=== PATIENT | female | born 1945 | race Caucasian/White ===

== ENCOUNTER 2017-07-11 09:30 | Outpatient (RCR) | payer MEDICARE, OTHER, SELFPAY ==
--- NOTE | 2017-06-25 09:19 | HP.PTEVAL_ITS ---
Patient's Visit Information TIGIST UNDERWOOD is a 71 year old F referred to Physical Therapy by Anni Pak MD with a diagnosis of R sided neck pain. Date of Evaluation: 06/25/17 Physical Therapist: Glory Almaguer - Visit Plan Frequency: 1-2x /Week Duration: 4 Weeks Plan: 1-2X/ week for 4 weeks for postural exercises including mostly scapular retraction and depression, c-spine ( mid trap and levator stretches), dry needling, MT and US if needed to decreased pain with HEP - Subjective Subjective: Years ago she had some pain on the R side of her neck and she tried some exercises from years ago but did not get much relief. She is complaining of (Senior strength with stretches and has helped a litte bit). A week ago Saturday she was doing some lifting and next morning could not lift head off the pillow. The anti-inflamm helps keep the pain down but does not want to be on that forever. She feels worse when she gets off the anti-inflamm. Sitting here she has a soreness. reports emmanuel there was a big knot in her shoulder. Pt c/o not real pain but more stiffness and soreness. no x-rays. no weakness. Pain does radiated to front ofchest and under armpit. She has some increase pain with pitching and catching with her son. No N&T. No pain on the L side. Pt is R handed. Tried propping chin up in prone on hands, and chin tucks with ext. - Pain R sided neck Pain Intensity (Out of 10): 2 - Objective c-spine AROM: flexion 100%, ext 75%, SB R 75%, SB L 100%, Rot R 75%, and L Rot 95%. R handed... R 67# and L 70#. UE MMT: b SHLD FLEX, ABD, ER and IR 4+/5. Posture: sit s with upright posture. Did notice some increase in mid trap and levator with elevation of UE's. Palpation: some tenderness and some trigger points felt in the levator and mid trap areas on the R. Repeated chin tucks 2 X 10...no change in sx. Repeated chin tucks with ext 2 X 10 ....no change in sx. Repeatd SB to the R 2 X 10....no change in sx. No change in sx with manual distraction and no occiput tenderness either. - Goals Goal 1:: I HEP Goal Time Frame: 4-6 Weeks Goal 2:: Decrease neck discomfort to 0/10 5/7 days in a week Goal Time Frame: 4-6 Weeks Goal 3:: Sit with better postrue with scapular depression and retraction. Goal Time Frame: 4-6 Weeks - Rehabilitation Potential Rehabilitation Potential: Good - Anticipated Interventions Patient/Client Instruction: Educate patient on: Plan of Care For the Purpose of:: To decrease pain, To decrease swelling/inflammation, To increase ROM, To improve nutrient delivery to tissue, To improve muscle performance and motor function, To increase tolerance to activity/condition/ position, To improve health of tissue, To decrease soft tissue restriction, To increase flexibility/ROM Therapeutic Exercise to Include: Strength training, Body mechanics, Postural training, Flexibilty training, Passive ROM, Active ROM, Scapular Strength/ Stabilization For the Purpose of:: To decrease pain, To decrease swelling/inflammation, To increase ROM, To improve nutrient delivery to tissue, To improve muscle performance and motor function, To improve ability to perform ADL's, To increase tolerance to activity/condition/position, To improve performance and independence with ADL's, To improve health of tissue, To decrease soft tissue restriction, To increase flexibility/ROM Manual Therapy Techniques to Include: Passive ROM, Functional dry needling, Soft tissue mobilization For the Purpose of:: To decrease pain, To decrease swelling/inflammation, To increase ROM, To improve nutrient delivery to tissue, To improve muscle performance and motor function, To improve health of tissue, To decrease soft tissue restriction, To increase flexibility/ROM Ultrasound (thermal/non thermal): Yes For the Purpose of:: To improve nutrient delivery to tissue, To improve health of tissue, To decrease soft tissue restriction Thank you for the opportunity to evaluate your patient. For Medicare and Medicare HMO plans, please review the plan of care and approve it. It will need to be FAXED BACK to us at [phone] for Medicare purposes. Please let me know if there are questions or concerns regarding this plan of care. Physician Signature: Date:
--- NOTE | 2017-10-03 10:45 | HP.PTDCSUM ---
HP - PT D/C Summary It has been my pleasure to treat TIGIST UNDERWOOD under orders from Anni Pak MD, for the diagnosis of R sided neck pain for a total of 3 visit(s). Discharge Date: Please see the following information for a summary of their discharge status. - Subjective Subjective: Pt. reports I am doing pretty well today. She was able to complete silver fitness class without incidence. Pt. reports being HEP compliant without adverse reaction. - Pain R sided neck Pain Intensity (Out of 10): 0 - Objective Objective/Function: Pt. reports mild increase NW symptoms after last time. Pt. reports no pain with PT this date. Pt. to contiunes to curent HEP and call PT with in the next 2-3 weeks to follow up. If pt. is no longer having symptoms call and cancel appointment. - Goals Goal 1:: I HEP Goal 2:: Decrease neck discomfort to 0/10 5/7 days in a week Goal 3:: Sit with better postrue with scapular depression and retraction. - Plan Plan: Continue with postural exercises, Give HEP next visit, continue with needling if needed. - D/C Information If there are questions or concerns regarding this patient's physical therapy, please feel free to call me at [phone]. Thank you for the referral of this patient. Sincerely, Glory Almaguer
== END 2017-07-11 19:00 | disposition home or self-care (01) ==
LOC: PT 09:30
PROVIDERS: Family Provider Family Medicine; PCP Family Medicine; Visit Provider Family Medicine
DX: M54.2 Cervicalgia (principal)
CPT/HCPCS: 97110; 97140; 97161; G8978; G8979

== ENCOUNTER → 2017-12-24 11:13 | Outpatient (CLI) | payer MEDICARE, OTHER, SELFPAY ==
[2017-12-24 12:17] LABS: Absolute Lymphocyte Count 1.37 X10^3/ul (0.83-4.51); Absolute Neutrophil Count 3.5 X10^3/uL (2.0-7.7); Basophil# 0.02 X10^3/uL; Basophil% 0.4 % (0-1); Eosinophil# 0.19 X10^3/uL; Eosinophils% 3.5 % (0-5); Hematocrit 40.1 % (37-47); Hemoglobin 13.3 g/dl (12.0-15.0); Lymphocyte # 1.37 X10^3/ul (4.0); Lymphocyte % 25.4 % (19-41); Mean Corp Hgb Conc 33.2 g/gl (32-36); Mean Corpuscular Hgb 29.8 pg (27.0-32.0); Mean Corpuscular Volume 89.9 fL (81-99); Mean Platelet Vol. 10.6 fl (6.2-12.0); Monocyte# 0.28 X10^3/uL; Monocyte% 5.2 % (0-10); Neutrophil # 3.53 X10^3/uL (2.7-7.7); Neutrophil % 65.3 % (47-70); Platelet Count 241 K/mm3 (150-450); RBC Distribution Width CV 13.4 % (11.6-14.6); Red Blood Count 4.46 M/mm3 (4.2-5.4); White Blood Count 5.4 K/mm3 (4.4-11.0)
[2017-12-24 12:19] LABS: POSITIVE COUNT NO; POSITIVE DIFFERENTIAL NO; POSITIVE MORPHOLOGY NO
[2017-12-24 12:47] LABS: ALB/GLOB Ratio 1.2 RATIO (0.9-2.4); AST(SGOT) 16 U/L (15-37); Alanine Aminotransfer ALT/SGPT 18 U/L (13-56); Albumin, Serum 3.9 g/dL (3.2-5.0); Alkaline Phosphatase 67 U/L (45-117); Anion Gap 8 (5-15); BUN 18 mg/dL (7-18); BUN/Creat Ratio 21.4 RATIO (10-20); Calcium,Total 9.1 mg/dL (8.5-10.1); Chloride 104 mmol/L (98-107); Cholesterol 181 mg/dL (200); Creatinine, Serum 0.84 mg/dL (0.55-1.02); EST Glomerular Filtration Rate 71 mL/min (>60); Est Glom Filt Rate - Afr Amer 86 mL/min (>60); Globulin 3.3 g/dL (2.2-4.2); Glucose 89 mg/dL (74-106); High Density Lipoprotein 75 mg/dL; Potassium 3.7 mmol/L (3.5-5.1); Protein, Total 7.2 g/dL (6.4-8.2); Sodium Level 140 mmol/L (136-145); Triglycerides 48 mg/dL; Very Low Density Lipoprotein 10 mg/dL (5-40)
== END ==
PROVIDERS: Family Provider Family Medicine; PCP Family Medicine; Visit Provider Family Medicine
DX: E78.5 Hyperlipidemia, unspecified (principal)
CPT/HCPCS: 36415; 80053; 80061; 85025

== ENCOUNTER → 2018-01-29 08:40 | Outpatient (CLI) | payer MEDICARE, OTHER, SELFPAY ==
--- NOTE | 2018-01-29 08:44 | BI_ITS ---
MAMMOGRAPHY - BILATERAL SCREENING REASON FOR EXAM: Female, 72 years old. Routine annual screening examination. PERTINENT HISTORY: Sister with breast cancer. TECHNIQUE: Digital bilateral breast ryan (3D mammographic acquisition) in the CC and MLO projections. 2-D mediolateral oblique (MLO) and craniocaudad (CC) views of both breasts were obtained. CAD: Full Field Digital Mammography with Computer Added Detection was performed. COMPARISON: Comparison is made with prior study dated November 14, 2016 and October 17, 2015. FINDINGS: Breast Composition: There are scattered areas of fibroglandular density. There are no dominant masses or suspicious calcifications. No other significant abnormalities are identified. There has been no significant change since the prior study. BI/SCREENING MAMM (CAD), BILAT IMPRESSION: Stable bilateral screening mammogram. Yearly follow-up mammogram recommended. (A) ASSESSMENT CATEGORY: BIRADS Category 1: Negative. A letter regarding these results will be sent to the patient by the facility within 30 days. Approximately 10% of breast cancers are not detected by mammography. A normal mammogram should not delay biopsy of a clinically suspicious abnormality. [id number] Electronically Signed: Steven Lawrence MD at 8:24 EDT Tel [phone], Service support ,
== END ==
PROVIDERS: Family Provider Family Medicine; PCP Family Medicine; Visit Provider Family Medicine
DX: Z12.31 Encounter for screening mammogram for malignant neoplasm of breast (principal)
CPT/HCPCS: 77063; 77067

== ENCOUNTER → 2019-01-26 | Outpatient (CLI) | payer MEDICARE, OTHER, SELFPAY ==
[2019-01-26 12:14] LABS: Absolute Lymphocyte Count 1.16 X10^3/ul (0.83-4.51); Absolute Neutrophil Count 2.9 X10^3/uL (2.0-7.7); Basophil# 0.02 X10^3/uL; Basophil% 0.4 % (0-1); Eosinophil# 0.11 X10^3/uL; Eosinophils% 2.5 % (0-5); Hematocrit 41.5 % (37-47); Hemoglobin 14.1 g/dl (12.0-15.0); Lymphocyte # 1.16 X10^3/ul (4.0); Lymphocyte % 25.9 % (19-41); Mean Corpuscular Hgb 30.7 pg (27.0-32.0); Mean Corpuscular Volume 90.4 fL (81-99); Monocyte# 0.29 X10^3/uL; Monocyte% 6.5 % (0-10); Neutrophil % 64.7 % (47-70); Platelet Count 233 K/mm3 (150-450); RBC Distribution Width CV 13.6 % (11.6-14.6); RBC Distribution Width SD 44.7 fl (35.1-43.9); Red Blood Count 4.59 M/mm3 (4.2-5.4); White Blood Count 4.5 K/mm3 (4.4-11.0)
[2019-01-26 12:22] LABS: POSITIVE COUNT NO; POSITIVE DIFFERENTIAL NO; POSITIVE MORPHOLOGY NO
[2019-01-26 12:57] LABS: ALB/GLOB Ratio 1.1 RATIO (0.9-2.4); AST(SGOT) 16 U/L (15-37); Alanine Aminotransfer ALT/SGPT 18 U/L (13-56); Albumin, Serum 3.7 g/dL (3.2-5.0); Alkaline Phosphatase 59 U/L (45-117); Anion Gap 10 (5-15); BUN 17 mg/dL (7-18); BUN/Creat Ratio 20.9 RATIO (10-20); Calcium,Total 9.1 mg/dL (8.5-10.1); Chloride 103 mmol/L (98-107); Cholesterol 179 mg/dL (200); Creatinine, Serum 0.81 mg/dL (0.55-1.02); EST Glomerular Filtration Rate 74 mL/min (>60); Est Glom Filt Rate - Afr Amer 89 mL/min (>60); Globulin 3.4 g/dL (2.2-4.2); Glucose 80 mg/dL (74-106); High Density Lipoprotein 73 mg/dL; Potassium 4.1 mmol/L (3.5-5.1); Protein, Total 7.1 g/dL (6.4-8.2); Sodium Level 140 mmol/L (136-145); Triglycerides 45 mg/dL; Very Low Density Lipoprotein 9 mg/dL (5-40)
== END | disposition home or self-care (01) ==
LOC: LAB.FUTURE 10:10
PROVIDERS: Family Provider Family Medicine; PCP Family Medicine; Visit Provider Family Medicine
DX: E78.5 Hyperlipidemia, unspecified (principal); M85.80 Other specified disorders of bone density and structure, unspecified site; L64.8 Other androgenic alopecia
CPT/HCPCS: 36415; 80053; 80061; 85025

== ENCOUNTER → 2019-02-06 | Outpatient (CLI) | payer MEDICARE, OTHER, SELFPAY ==
--- NOTE | 2019-02-06 07:39 | BI_ITS ---
MAMMOGRAPHY - BILATERAL SCREENING 3-D TOMOSYNTHESIS REASON FOR EXAM: Female, 73 years old. Bilateral Screening 3-D tomosynthesis PERTINENT HISTORY: Breast cancer in sister at age 33. TECHNIQUE: 2-D mammograms and 3-D Tomosynthesis of the breast (s) were performed. CAD was performed. COMPARISON: January 29, 2018, November 14, 2016, October 17, 2015 FINDINGS: The breast composition is almost entirely fat. Scattered benign calcifications are seen. No dense spiculated masses or suspicious microcalcifications are identified. No architectural distortion is identified. There is no skin thickening or retraction. There has been no significant change since the prior study. BI/SCREEN MAMM (CAD) W/JESSICA BILAT IMPRESSION: No mammographic signs of malignancy. Routine yearly mammograms recommended. ASSESSMENT CATEGORY: BIRADS Category 2: Benign. A letter regarding these results will be sent to the patient by the facility within 30 days. FOLLOW UP RECOMMENDATION: Yearly follow up mammogram recommended. (A) Approximately 10% of breast cancers are not detected by mammography. A normal mammogram should not delay biopsy of a clinically suspicious abnormality. Electronically Signed: Chris Clinton MD at 17:52 EDT , Service support ,
== END | disposition home or self-care (01) ==
LOC: OPBI 07:36
PROVIDERS: Family Provider Family Medicine; PCP Family Medicine; Referring Provider Family Medicine; Visit Provider Family Medicine
DX: Z12.31 Encounter for screening mammogram for malignant neoplasm of breast (principal)
CPT/HCPCS: 77063; 77067

== ENCOUNTER → 2020-03-10 15:21 | Outpatient (CLI) | payer MEDICARE, OTHER, SELFPAY ==
[2020-03-10 18:03] LABS: Anion Gap 4 (5-15); BUN 17 mg/dL (7-18); BUN/Creat Ratio 18.8 RATIO (10-20); Calcium,Total 9.3 mg/dL (8.5-10.1); Chloride 105 mmol/L (98-107); EST Glomerular Filtration Rate 65 mL/min (>60); Est Glom Filt Rate - Afr Amer 78 mL/min (>60); Glucose 85 mg/dL (74-106); Sodium Level 138 mmol/L (136-145)
== END ==
PROVIDERS: PCP Family Medicine; Visit Provider Family Medicine
DX: Z01.818 Encounter for other preprocedural examination (principal)
CPT/HCPCS: 36415; 80048

== ENCOUNTER → 2020-05-09 11:18 | Outpatient (CLI) | payer MEDICARE, OTHER, SELFPAY ==
[2020-05-09 15:41] LABS: AST(SGOT) 16 U/L (15-37); Alanine Aminotransfer ALT/SGPT 19 U/L (13-56); Albumin, Serum 3.9 g/dL (3.2-5.0); Alkaline Phosphatase 57 U/L (45-117); Bilirubin, Direct 0.19 mg/dL (0.00-0.30); Cholesterol 216 mg/dL (200); Globulin 3.1 g/dL (2.2-4.2); High Density Lipoprotein 91 mg/dL; Triglycerides 38 mg/dL; Very Low Density Lipoprotein 8 mg/dL (5-40)
[2020-05-09 15:55] LABS: Absolute Lymphocyte Count 1.08 X10^3/uL (0.83-4.51); Absolute Neutrophil Count 3.4 X10^3/uL (2.0-7.7); Basophil# 0.03 X10^3/uL; Basophil% 0.6 % (0-1); Eosinophil# 0.06 X10^3/uL; Eosinophils% 1.2 % (0-5); Hematocrit 40.1 % (37-47); Hemoglobin 13.4 g/dL (12.0-15.0); Lymphocyte # 1.08 X10^3/ul (4.0); Lymphocyte % 21.8 % (19-41); Mean Corp Hgb Conc 33.4 g/dL (32-36); Mean Corpuscular Volume 92.8 fL (81-99); Mean Platelet Vol. 10.5 fl (6.2-12.0); Monocyte# 0.33 X10^3/uL; Monocyte% 6.7 % (0-10); NRBC Flagged by Analyzer 0 % (0-5); Neutrophil # 3.43 X10^3/uL (2.7-7.7); Neutrophil % 69.3 % (47-70); Platelet Count 254 K/mm3 (150-450); RBC Distribution Width CV 13.2 % (11.6-14.6); RBC Distribution Width SD 45.2 fl (35.1-43.9); Red Blood Count 4.32 M/mm3 (4.2-5.4)
== END ==
PROVIDERS: PCP Family Medicine; Visit Provider Family Medicine
DX: E78.5 Hyperlipidemia, unspecified (principal)
CPT/HCPCS: 36415; 80061; 80076; 85025

== ENCOUNTER → 2020-06-10 09:49 | Outpatient (CLI) | payer MEDICARE, OTHER, SELFPAY ==
--- NOTE | 2020-06-10 09:51 | BI_ITS ---
MAMMOGRAPHY - BILATERAL SCREENING REASON FOR EXAM: Female, 74 years old. Routine annual screening examination. PERTINENT HISTORY: Sister with breast cancer. TECHNIQUE: Digital bilateral breast jessica (3D mammographic acquisition) in the CC and MLO projections. 2-D mediolateral oblique (MLO) and craniocaudad (CC) views of both breasts were obtained. CAD: Full Field Digital Mammography with Computer Added Detection was performed. COMPARISON: Comparison is made with prior study dated 02/06/2019 and 01/29/2018. FINDINGS: Breast Composition: There are scattered areas of fibroglandular density. There are no dominant masses or suspicious calcifications. Stable benign appearing bilateral axillary lymph nodes. No other significant abnormalities are identified. There has been no significant change since the prior study. BI/SCREEN MAMM (CAD) W/JESSICA BILAT IMPRESSION: Stable bilateral screening mammogram. Yearly follow-up mammogram recommended. (A) ASSESSMENT CATEGORY: BIRADS Category 2: Benign. A letter regarding these results will be sent to the patient by the facility within 30 days. Approximately 10% of breast cancers are not detected by mammography. A normal mammogram should not delay biopsy of a clinically suspicious abnormality. [id number] Electronically Signed: Steven Lawrence, at 10:55 EDT , Service support ,
== END ==
PROVIDERS: PCP Family Medicine; Referring Provider Family Medicine; Visit Provider Family Medicine
DX: Z12.31 Encounter for screening mammogram for malignant neoplasm of breast (principal)
CPT/HCPCS: 77063; 77067

== ENCOUNTER 2020-10-05 16:54 | Outpatient (RCR) | payer MEDICARE, OTHER, SELFPAY | END 2020-10-05 23:59 | LOC: IMMUN 16:54 | PROVIDERS: PCP Family Medicine; Referring Provider Family Medicine; Visit Provider Family Medicine | DX: Z23 Encounter for immunization (principal) | CPT/HCPCS: 0011A; 0012A; 91301 ==

== ENCOUNTER → 2021-01-12 | Outpatient (CLI) | payer MEDICARE, OTHER, SELFPAY | END | disposition home or self-care (01) | PROVIDERS: PCP Family Medicine; Referring Provider Family Medicine; Visit Provider Family Medicine | DX: Z20.828 Contact with and (suspected) exposure to other viral communicable diseases (principal) | CPT/HCPCS: 87635; U0005; U0003 ==

== ENCOUNTER → 2021-06-26 08:07 | Outpatient (CLI) | payer MEDICARE, OTHER, SELFPAY ==
--- NOTE | 2021-06-26 08:10 | BI_ITS ---
MAMMOGRAPHY - BILATERAL SCREENING REASON FOR EXAM: Female, 75 years old. Routine annual screening examination. PERTINENT HISTORY: Sister with breast cancer. TECHNIQUE: Digital bilateral breast jessica (3D mammographic acquisition) in the CC and MLO projections. 2-D mediolateral oblique (MLO) and craniocaudad (CC) views of both breasts were obtained. CAD: Full Field Digital Mammography with Computer Added Detection was performed. COMPARISON: Comparison is made with prior study dated 06/10/2020 and 02/06/2019. FINDINGS: Breast Composition: There are scattered areas of fibroglandular density. There are no dominant masses or suspicious calcifications. No other significant abnormalities are identified. There has been no significant change since the prior study. BI/SCRN MAMM (CAD)W/JESSICA BILAT IMPRESSION: Stable bilateral screening mammogram. Yearly follow-up mammogram recommended. (A) ASSESSMENT CATEGORY: BIRADS Category 1: Negative. A letter regarding these results will be sent to the patient by the facility within 30 days. Approximately 10% of breast cancers are not detected by mammography. A normal mammogram should not delay biopsy of a clinically suspicious abnormality. [id number] Electronically Signed: Steven Lawrence MD at 9:48 EST , Service support ,
== END ==
PROVIDERS: PCP Family Medicine; Referring Provider Family Medicine; Visit Provider Family Medicine
DX: Z12.31 Encounter for screening mammogram for malignant neoplasm of breast (principal)
CPT/HCPCS: 77063; 77067

== ENCOUNTER 2021-11-24 10:46 | Outpatient (CLI) | payer MEDICARE, OTHER, SELFPAY ==
--- NOTE | 2021-11-24 10:50 | RAD_ITS ---
STUDY: XR Shoulder Min 2 Views REASON FOR EXAM: Female, 76 years old. PAIN TECHNIQUE: XR Shoulder Min 2 Views LEFT COMPARISON: None. FINDINGS: Normal glenohumeral articulation. Normal acromioclavicular joint. Normal acromion. Normal humeral head and visualized proximal humerus. The soft tissue structures are unremarkable. Normal visualized pulmonary apex. RAD/Shoulder min 2 Views IMPRESSION: There are no acute findings of the shoulder. Electronically Signed: Jin Tubbs MD at 16:58 EDT ,
--- NOTE | 2021-11-24 10:50 | RAD_ITS ---
STUDY: XR Shoulder Min 2 Views REASON FOR EXAM: Female, 76 years old. PAIN TECHNIQUE: XR Shoulder Min 2 Views RIGHT COMPARISON: None. FINDINGS: Normal glenohumeral articulation. Normal acromioclavicular joint. Normal acromion. Normal humeral head and visualized proximal humerus. The soft tissue structures are unremarkable. Normal visualized pulmonary apex. RAD/Shoulder min 2 Views IMPRESSION: There are no acute findings of the shoulder. Electronically Signed: Jin Tubbs MD at 16:58 EDT ,
== END 2021-11-24 23:59 | disposition home or self-care (01) ==
LOC: MTRAD 10:48
PROVIDERS: PCP Family Medicine; Referring Provider Family Medicine; Visit Provider Family Medicine
DX: M25.511 Pain in right shoulder (principal); M25.512 Pain in left shoulder
CPT/HCPCS: 73030

== ENCOUNTER 2021-11-28 10:19 | Outpatient (CLI) | payer MEDICARE, OTHER, SELFPAY ==
--- NOTE | 2021-11-28 10:27 | BD_ITS ---
STUDY: DUAL ENERGY X-RAY ABSORPTIOMETRY / DXA REASON FOR EXAM: Female, 76 years old. M85.89. Patient is postmenopausal. TECHNIQUE: Bone Mineral Density (BMD) measurements of lumbar spine and bilateral hips were obtained. COMPARISON: Comparison is made with prior examination 11/14/2016. FINDINGS: Lumbar Spine (L1-L4): g/cm2 (1.153) / T-score (0.9) / Z-score (3.4) Findings are suggestive of normal bone density with a low fracture risk. Left Femur Total: g/cm2 (0.752) / T-score (-1.6) / Z-score (0.2) Left Femoral Neck: g/cm2 (0.579) / T-score (-2.4) / Z-score (-0.3) Right Femur Total: g/cm2 (0.735) / T-score (-1.7) / Z-score (0.1) Right Femoral Neck: g/cm2 (0.597) / T-score (-2.3) / Z-score (-0.2) The T-Scores on the most recent prior examination were: Lumbar Spine (L1-L4): There has been improvement of bone density since the previous examination. Left Femur Total: which represents a worsening of 4%. Right Femur Total: which represents a worsening of 1.8%. BD/Dexa Bone Density Study IMPRESSION: The patient is considered osteopenic as outlined below according to World Rigoberto Organization (WHO) criteria with a high fracture risk. There has been worsening of bone density since the previous examination. Reference Information: The T-score is the number of standard deviations above or below the standard which is normal for young adults at their peak bone mineral density. The World Health Organization (WHO) interprets the T-scores as follows: Above -1 Normal bone density Between -1 and -2.5 Osteopenia Equal to / or below -2.5 Osteoporosis As a practical clinical guideline, osteopenia may be graded as follows: Mild -1 through -1.5 Moderate -1.6 through -2.0 Severe -2.1 through -2.4 The Z-score is the number of standard deviations above or below age-matched controls. A Z-score of less than -1.5 would be considered abnormal. References: 1. NIH Osteoporosis and Related Bone Diseases www osteo.org 2. International Society for Clinical Densitometry www iscd.org 3. National Osteoporosis Foundation www nof.org Electronically Signed: Steven Lawrence MD at 15:47 EDT ,
== END 2021-11-28 23:59 | disposition home or self-care (01) ==
LOC: OPBD 10:19
PROVIDERS: PCP Family Medicine; Referring Provider Family Medicine; Visit Provider Family Medicine
DX: M85.80 Other specified disorders of bone density and structure, unspecified site (principal); Z78.0 Asymptomatic menopausal state
CPT/HCPCS: 77080

== ENCOUNTER 2021-12-28 10:00 | Outpatient (RCR) | payer MEDICARE, OTHER, SELFPAY ==
--- NOTE | 2021-12-04 09:13 | HP.PTEVAL ---
Patient's Visit Information TIGIST UNDERWOOD is a 76 year old F referred to Physical Therapy by Dr. Damaris Whitmore MD with a diagnosis of . Date of Evaluation: Physical Therapist: Kvng Marroquin DPT, OCS, CSCS - Anticipated Interventions Thank you for the opportunity to evaluate your patient. For Medicare and Medicare HMO plans, please review the plan of care and approve it. It will need to be FAXED BACK to us at [phone] for Medicare purposes. For Medicare only, by signing this I certify the plan of care. Please let me know if there are questions or concerns regarding this plan of care. Physician Signature: Date:
--- NOTE | 2021-12-04 10:06 | HP.PTEVAL_ITS ---
Patient's Visit Information TIGIST UNDERWOOD is a 76 year old F referred to Physical Therapy by Dr. Damaris Whitmore MD with a diagnosis of Shoulder pain. Date of Evaluation: 12/04/21 Physical Therapist: Kvng Marroquin DPT, OCS, CSCS - Visit Plan Frequency: 2-3x /Week Duration: 2-4 Weeks Plan: 3x/week for 2-4 weeks for ... 1. US nonthermal to L supraspinatus. 2. manual therapy grade 3-4 g-h mobs. 3. teach strength for posture and RC with band for HEP. 4. focus posture and activity modifcation as able. - Subjective L shoulder pain for a few months. Has had to back senior strength class down. Lifting mattress and turning causes pain. No swelling. Pain is lateral. X rays were clear. Comfortable at rest. Sometimes radiates down to forearm. Feels fatigued. No neck problems. No numbness or tingling in arm. Basic ADLs are getting done. Not employed. Sleep is wonderful, sleeps on back or right side. - Pain L shoulder Pain Intensity (Out of 10): 0 Pain Intensity Range: 0, 8 Comment: raking was worse - Objective Walks and transfers normal and I. Cervical aROM full and pianfree today. refle xes bi and tri 2/3 B. Sensation UE WNL to gross light touch. Tenderness is at supraspinatus tendon L moderately and R minimally. AROM UE WNL to movement and symmetrical but L hurts end range IR, ER and elevation. Strength hand and elbow 4+/5 without pain. flexion and abduction 4- and slight discomfort, empty can +, - ext rotation lag test, - drop arm, + HK and neer impingement test On L. - Balance/Special Test Scores Quick DASH Score: 34.0900 - Goals Goal 1:: Full UE AROM without pain Goal Time Frame: 2-4 Weeks Goal 2:: Pt feel 80% better with overall pain Goal Time Frame: 2-4 Weeks Goal 3:: I approp HEP for activity modification and strength /posture. Goal Time Frame: 2-4 Weeks Goal 4:: quick dash score 14 or better. Goal Time Frame: 2-4 Weeks Goal 5:: Return to full senior strength class. Goal Time Frame: 4-6 Weeks - Rehabilitation Potential Physical Therapy Diagnosis: shoulder pain , L supraspinatus tendonitis. Rehabilitation Potential: Good - Anticipated Interventions Patient/Client Instruction: Educate patient on: Condition, Plan of Care For the Purpose of:: To decrease pain, To improve muscle performance and motor function, To increase tolerance to activity/condition/position Therapeutic Exercise to Include: Strength training, Flexibilty training, Scapular Strength/Stabilization For the Purpose of:: To decrease pain, To improve muscle performance and motor function, To increase tolerance to activity/condition/position, To improve ability of physical actions for home/community/work/leisure Manual Therapy Techniques to Include: Mobilization, Soft tissue mobilization For the Purpose of:: To decrease pain, To improve muscle performance and motor function Ultrasound (thermal/non thermal): Yes For the Purpose of:: To decrease pain, To decrease swelling/inflammation Thank you for the opportunity to evaluate your patient. For Medicare and Medicare HMO plans, please review the plan of care and approve it. It will need to be FAXED BACK to us at [phone] for Medicare purposes. For Medicare only, by signing this I certify the plan of care. Please let me know if there are questions or concerns regarding this plan of care. Physician Signature:___ Date:
--- NOTE | 2021-12-28 10:14 | HP.PTDCSUM_ITS ---
It has been my pleasure to treat TIGIST UNDERWOOD referred by Dr. Damaris Whitmore MD, with the diagnosis of Left Shoulder pain for a total of 8 visit(s). Discharge Date: 12/28/21 Please see the following information for a summary of their discharge status. Subjective: Feels like she is improving. Working up to blue band and feels stronger. using account services representative weights in senior strength adn avoiding OH. Sleep is good. Pain this week to 6/10 transiently but has been careful. Did some mulching without a problem. Avoiding OH and lifting heavy but is able to mop. L shoulder Pain Intensity (Out of 10): 0 % Improvement: 90 Objective/Function: Full aROM without pain, only pain is with passive horiz adduction slightly and trasniently. strength is symmetrical in shoulders and without pain in L. overall significantly better and ready to manage on her own. Goal 1:: Full UE AROM without pain Goal Progress: Goal Met Goal 2:: Pt feel 80% better with overall pain Goal Progress: Goal Met Goal 3:: I approp HEP for activity modification and strength /posture. Goal Progress: Goal Met Goal 4:: quick dash score 14 or better. Goal Progress: Progressing Goal 5:: Return to full senior strength class. Goal Progress: Goal Met Plan: d/c, pt to contact doctor if pain returns. If there are questions or concerns regarding this patient's physical therapy, please feel free to call me at [phone]. Thank you for the referral of this patient. Sincerely, Kvng Marroquin, DPT, OCS, CSCS Balance/Gait/Functional tests - Balance/Special Test Scores Quick DASH Score: 20.4525
== END 2021-12-28 19:00 | disposition home or self-care (01) ==
LOC: PT 10:00
PROVIDERS: PCP Family Medicine; Referring Provider Family Medicine; Visit Provider Family Medicine
DX: M25.511 Pain in right shoulder (principal); M25.512 Pain in left shoulder
CPT/HCPCS: 97035; 97110; 97161; 97164

== ENCOUNTER 2022-07-03 08:38 | Outpatient (CLI) | payer MEDICARE, SELFPAY ==
[2022-07-03 12:12] LABS: Absolute Lymphocyte Count 1.14 X10^3/uL (0.83-4.51); Absolute Neutrophil Count 2.7 X10^3/uL (2.0-7.7); Basophil# 0.03 X10^3/uL; Basophil% 0.7 % (0-1); Eosinophil# 0.17 X10^3/uL; Eosinophils% 3.8 % (0-5); Hematocrit 40.5 % (37-47); Hemoglobin 13.9 g/dL (12.0-15.0); Lymphocyte # 1.14 X10^3/ul (0.83-4.51); Lymphocyte % 25.7 % (19-41); Mean Corp Hgb Conc 34.3 g/dL (32-36); Mean Corpuscular Hgb 31.6 pg (27.0-32.0); Mean Platelet Vol. 10.7 fl (6.2-12.0); Monocyte# 0.38 X10^3/uL; Monocyte% 8.6 % (0-10); NRBC Flagged by Analyzer 0 % (0-5); Neutrophil # 2.71 X10^3/uL (2.7-7.7); Platelet Count 278 K/mm3 (150-450); RBC Distribution Width SD 44.1 fl (35.1-43.9); White Blood Count 4.4 K/mm3 (4.4-11.0)
[2022-07-03 12:36] LABS: ALB/GLOB Ratio 1.1 RATIO (0.9-2.4); AST(SGOT) 14 U/L (15-37); Alanine Aminotransfer ALT/SGPT 18 U/L (13-56); Albumin, Serum 3.8 g/dL (3.2-5.0); Alkaline Phosphatase 57 U/L (45-117); Anion Gap 5 (5-15); BUN 15 mg/dL (7-18); BUN/Creat Ratio 17.8 RATIO (10-20); Calcium,Total 9.2 mg/dL (8.5-10.1); Chloride 103 mmol/L (98-107); Cholesterol 239 mg/dL (200); Creatinine, Serum 0.84 mg/dL (0.55-1.02); EST Glomerular Filtration Rate 70 mL/min (>60); Est Glom Filt Rate - Afr Amer 84 mL/min (>60); Globulin 3.5 g/dL (2.2-4.2); Glucose 97 mg/dL (74-106); High Density Lipoprotein 89 mg/dL; Potassium 4.1 mmol/L (3.5-5.1); Protein, Total 7.3 g/dL (6.4-8.2); Sodium Level 138 mmol/L (136-145); Triglycerides 45 mg/dL; Very Low Density Lipoprotein 9 mg/dL (5-40)
== END 2022-07-03 23:59 | disposition home or self-care (01) ==
LOC: BFHLAB 08:39
PROVIDERS: PCP Family Medicine; Visit Provider Family Medicine
DX: Z00.00 Encounter for general adult medical examination without abnormal findings (principal); E78.5 Hyperlipidemia, unspecified
CPT/HCPCS: 36415; 80053; 80061; 85025

== ENCOUNTER 2022-07-06 14:55 | Outpatient (CLI) | payer MEDICARE, SELFPAY ==
--- NOTE | 2022-07-06 14:57 | BI_ITS ---
MAMMOGRAPHY - BILATERAL SCREENING REASON FOR EXAM: Female, 76 years old. Routine annual screening examination. PERTINENT HISTORY: Sister with breast cancer. TECHNIQUE: Digital bilateral breast jessica (3D mammographic acquisition) in the CC and MLO projections. 2-D mediolateral oblique (MLO) and craniocaudad (CC) views of both breasts were obtained. CAD: Full Field Digital Mammography with Computer Added Detection was performed. COMPARISON: 06/26/2021, 06/10/2020. FINDINGS: Breast Composition: There are scattered areas of fibroglandular density. There are no dominant masses or suspicious calcifications. No other significant abnormalities are identified. There has been no significant change since the prior study. BI/SCRN MAMM (CAD)W/JESSICA BILAT IMPRESSION: Stable bilateral screening mammogram. Yearly follow-up mammogram recommended. (A) ASSESSMENT CATEGORY: BIRADS Category 1: Negative. A letter regarding these results will be sent to the patient by the facility within 30 days. Approximately 10% of breast cancers are not detected by mammography. A normal mammogram should not delay biopsy of a clinically suspicious abnormality. Electronically Signed: Jan Geiger, at 15:48 EST ,
== END 2022-07-06 23:59 | disposition home or self-care (01) ==
LOC: OPBI 14:56
PROVIDERS: PCP Family Medicine; Referring Provider Family Medicine; Visit Provider Family Medicine
DX: Z12.31 Encounter for screening mammogram for malignant neoplasm of breast (principal); Z80.3 Family history of malignant neoplasm of breast
CPT/HCPCS: 77063; 77067

== ENCOUNTER → 2022-08-11 | Outpatient (CLI) | payer MEDICARE, OTHER, SELFPAY ==
--- NOTE | 2022-08-11 12:21 | RAD_ITS ---
EXAM: XR RIGHT HAND COMPLETE, 3 OR MORE VIEWS CLINICAL INDICATION: Fall injury. TECHNIQUE: Frontal, lateral and oblique views of the right hand. This report was created using [employer] report generation technology. COMPARISON: None. FINDINGS: BONES/JOINTS: Acute incomplete fracture across the base of the fifth metacarpal. Preservation of the joint space. No sclerotic or destructive changes observed. SOFT TISSUES: Unremarkable. No soft tissue swelling or gas. No radiopaque foreign body. RAD/Hand Min 3 Views IMPRESSION: Acute incomplete fracture across the base of the right fifth metacarpal. Electronically Signed: Ryan Vences MD at 12:47 EST ,
== END | disposition home or self-care (01) ==
LOC: RAD 12:21
PROVIDERS: PCP Family Medicine; Visit Provider Physician Assistant
DX: S62.316A Displaced fracture of base of fifth metacarpal bone, right hand, initial encounter for closed fracture (principal); M79.641 Pain in right hand
CPT/HCPCS: 73130

== ENCOUNTER → 2023-09-20 | Outpatient (CLI) | payer MEDICARE, SELFPAY ==
[2023-09-20 10:26] LABS: Absolute Neutrophil Count 2.9 X10^3/uL (2.0-7.7); Basophil# 0.04 X10^3/uL; Basophil% 0.9 % (0-1); Eosinophil# 0.16 X10^3/uL; Eosinophils% 3.4 % (0-5); Hematocrit 40.3 % (37-47); Hemoglobin 13.7 g/dL (12.0-15.0); Lymphocyte % 25.6 % (19-41); Mean Corpuscular Hgb 30.9 pg (27.0-32.0); Mean Platelet Vol. 10.5 fl (6.2-12.0); Monocyte# 0.39 X10^3/uL; Monocyte% 8.3 % (0-10); NRBC Flagged by Analyzer 0 % (0-5); Neutrophil # 2.89 X10^3/uL (2.7-7.7); Neutrophil % 61.6 % (47-70); Platelet Count 220 K/mm3 (150-450); RBC Distribution Width SD 42.9 fl (35.1-43.9); Red Blood Count 4.43 M/mm3 (4.2-5.4); White Blood Count 4.7 K/mm3 (4.4-11.0)
[2023-09-20 11:03] LABS: ALB/GLOB Ratio 1.3 RATIO (0.9-2.4); AST(SGOT) 15 U/L (15-37); Alanine Aminotransfer ALT/SGPT 16 U/L (13-56); Alkaline Phosphatase 61 U/L (45-117); Anion Gap 5 (5-15); BUN 18 mg/dL (7-18); BUN/Creat Ratio 21.9 RATIO (10-20); Calcium,Total 9.1 mg/dL (8.5-10.1); Chloride 105 mmol/L (98-107); Cholesterol 203 mg/dL (200); Creatinine, Serum 0.82 mg/dL (0.55-1.02); EST Glomerular Filtration Rate 72 mL/min (>60); Est Glom Filt Rate - Afr Amer 87 mL/min (>60); Globulin 3.1 g/dL (2.2-4.2); Glucose 93 mg/dL (74-106); High Density Lipoprotein 85 mg/dL; Potassium 4.3 mmol/L (3.5-5.1); Protein, Total 7.1 g/dL (6.4-8.2); Sodium Level 139 mmol/L (136-145); Triglycerides 39 mg/dL; Very Low Density Lipoprotein 8 mg/dL (5-40)
== END | disposition home or self-care (01) ==
LOC: LAB 09:31
PROVIDERS: PCP Family Medicine; Referring Provider Family Medicine; Visit Provider Family Medicine
DX: Z00.00 Encounter for general adult medical examination without abnormal findings (principal); E78.5 Hyperlipidemia, unspecified; M85.80 Other specified disorders of bone density and structure, unspecified site
CPT/HCPCS: 36415; 80053; 80061; 85025

== ENCOUNTER → 2023-10-02 | Outpatient (CLI) | payer MEDICARE, SELFPAY ==
--- NOTE | 2023-10-02 10:46 | BI_ITS ---
MAMMOGRAPHY - BILATERAL SCREENING REASON FOR EXAM: Female, 78 years old. Routine annual screening examination. PERTINENT HISTORY: Sister with breast cancer. TECHNIQUE: Digital bilateral breast jessica (3D mammographic acquisition) in the CC and MLO projections. 2-D mediolateral oblique (MLO) and craniocaudad (CC) views of both breasts were obtained. CAD: Full Field Digital Mammography with Computer Added Detection was performed. COMPARISON: Comparison is made with prior study dated July 06, 2022 and June 26, 2021. FINDINGS: Breast Composition: There are scattered areas of fibroglandular density. There are no dominant masses or suspicious calcifications. Stable small benign-appearing bilateral axillary lymph nodes. No other significant abnormalities are identified. There has been no significant change since the prior study. BI/SCRN MAMM (CAD)W/JESSICA BILAT IMPRESSION: Stable bilateral screening mammogram. Yearly follow-up mammogram recommended. (A) ASSESSMENT CATEGORY: BIRADS Category 2: Benign. A letter regarding these results will be sent to the patient by the facility within 30 days. Approximately 10% of breast cancers are not detected by mammography. A normal mammogram should not delay biopsy of a clinically suspicious abnormality. [id number] Electronically Signed: Steven Lawrence MD at 11:21 EST ,
== END | disposition home or self-care (01) ==
LOC: OPBI 10:45
PROVIDERS: PCP Family Medicine; Referring Provider Family Medicine; Visit Provider Family Medicine
DX: Z12.31 Encounter for screening mammogram for malignant neoplasm of breast (principal); Z80.3 Family history of malignant neoplasm of breast
CPT/HCPCS: 77063; 77067

== ENCOUNTER → 2024-11-12 | Outpatient (CLI) | payer MEDICARE, SELFPAY ==
[2024-11-12 12:13] LABS: Absolute Neutrophil Count 2.6 X10^3/uL (2.0-7.7); Basophil# 0.04 X10^3/uL; Basophil% 0.9 % (0-1); Eosinophil# 0.25 X10^3/uL; Eosinophils% 5.9 % (0-5); Hematocrit 40.7 % (37-47); Hemoglobin 13.9 g/dL (12.0-15.0); Lymphocyte % 23.4 % (19-41); Mean Corp Hgb Conc 34.2 g/dL (32-36); Mean Corpuscular Volume 90.8 fL (81-99); Mean Platelet Vol. 10.9 fl (6.2-12.0); Monocyte# 0.38 X10^3/uL; Monocyte% 8.9 % (0-10); NRBC Flagged by Analyzer 0 % (0-5); Neutrophil # 2.59 X10^3/uL (2.7-7.7); Neutrophil % 60.7 % (47-70); Platelet Count 245 K/mm3 (150-450); RBC Distribution Width CV 13.2 % (11.6-14.6); RBC Distribution Width SD 44.2 fl (35.1-43.9); Red Blood Count 4.48 M/mm3 (4.2-5.4); White Blood Count 4.3 K/mm3 (4.4-11.0)
[2024-11-12 14:01] LABS: ALB/GLOB Ratio 1.7 RATIO (0.9-2.4); AST(SGOT) 18 U/L (<=31); Alanine Aminotransfer ALT/SGPT 10 U/L (<=34); Albumin, Serum 4.4 g/dL (3.4-4.8); Alkaline Phosphatase 62 U/L (35-104); Anion Gap 12 (5-15); BUN 16 mg/dL (4-19); BUN/Creat Ratio 19.9 RATIO (10-20); Calcium,Total 9.6 mg/dL (7.6-11.0); Chloride 102 mmol/L (98-108); Cholesterol 219 mg/dL (<=200); Creatinine, Serum 0.82 mg/dL (0.70-1.20); EST Glomerular Filtration Rate 74 (>60); Globulin 2.6 g/dL (2.2-4.2); Glucose 88 mg/dL (70-99); High Density Lipoprotein 92 mg/dL; Low Density Lipoprotein Calc. 119 mg/dL; Potassium 4.5 mmol/L (3.3-5.1); Sodium Level 139 mmol/L (133-145); Triglycerides 43 mg/dL; Very Low Density Lipoprotein 9 mg/dL (5-40); cholesterol:hdl ratio screen 2.39
== END | disposition home or self-care (01) ==
LOC: BFHLAB 08:32
PROVIDERS: PCP Family Medicine; Visit Provider Family Medicine
DX: Z00.00 Encounter for general adult medical examination without abnormal findings (principal); E78.5 Hyperlipidemia, unspecified; M85.80 Other specified disorders of bone density and structure, unspecified site
CPT/HCPCS: 36415; 80053; 80061; 85025

== ENCOUNTER → 2024-11-25 | Outpatient (CLI) | payer MEDICARE, SELFPAY ==
--- NOTE | 2024-11-25 10:21 | BI_ITS ---
EXAM: SCRN MAMM (CAD)W/JESSICA BILAT 11/25/2024 CLINICAL HISTORY: F, Age 79 y/o , SCREENING TECHNIQUE: Bilateral screening digital breast tomosynthesis with 2D and 3D images. Computer aided detection. COMPARISON: Prior exam(s) dated 10/02/2023, 07/06/2022. FINDINGS: TISSUE DENSITY: The breast tissue is composed of scattered area of fibroglandular density. Bilateral Breast Mammographic Findings: No significant masses, calcifications or other abnormalities are identified. BI/SCRN MAMM (CAD)W/JESSICA BILAT IMPRESSION: Right Breast: BIRADS 1 NEGATIVE. Left Breast: BIRADS 1 NEGATIVE. OVERALL FINAL ASSESSMENT: BIRADS 1 NEGATIVE. RECOMMENDATION: Routine annual follow-up in 1 Year A letter with findings and recommendations will be mailed to the patient. Reading Location: [facility]
== END | disposition home or self-care (01) ==
LOC: OPBI 10:19
PROVIDERS: PCP Family Medicine; Referring Provider Family Medicine; Visit Provider Family Medicine
DX: Z12.31 Encounter for screening mammogram for malignant neoplasm of breast (principal)
CPT/HCPCS: 77063; 77067

== ENCOUNTER 2025-03-23 08:00 | Outpatient (RCR) | payer MEDICARE, SELFPAY ==
--- NOTE | 2025-02-23 08:49 | HP.PTEVAL_ITS ---
Patient's Visit Information Visit Information Visit Information: TIGIST UNDERWOOD is a 79 year old F referred to Physical Therapy by TJ Thomas with a diagnosis of L knee pain/OA. Date of Evaluation: 02/23/25 Physical Therapist: CONOR Saucedo Visit Plan Frequency: 2x /Week Duration: 4 Weeks Plan: 2X/ week for 4-6 visits for HEP for hip and knee strengthening with bands and then a few visits to learn indep H&W rountine (5-6 machines) for hip and knee strength. HEP: SLR, Bridges, Prone hip ext, and SL hip abd Subjective Subjective: Pt had x-rays last week and it showed arthritis in her L knee and then it eased and then the R one started. The R one hurts more right now on the inside of her knee. The L knee hurts more in the front of the knee when it does. Sit to stand is the worse. She has not tested walking much. [place] She is taking a cane just in case. Flat surfaces are good. If she has to hurry or do steps it is worse. The pain is not constant. Pain R knee pain: Pain Intensity (Out of 10): 0 Pain Intensity Range: 2 L knee pain: Pain Intensity (Out of 10): 0 Objective Objective: Gait: Decrease stance time on the R LE. Knee AROM: R knee 0-121 L knee 0-124 LE MMT: R hip flex 13.6 and L 14.7 R knee ext 14.2 and L 12.9 R knee flex 14.2 and L 13.7 B hip abd 4/5 B Pt is able to do a 3/4 bridge with increase B HS cramping Pt is able to heel and raise without UE support Stairs: up and down recip with B UE (pulls a little on her arms to get up the steps) Sit to stand: Pt is able to stand up without using her UE's Balance/Special Test Scores Lower Extremity Functional Score: 44 Goals Goal 1:: I HEP (Home Program and Gym routine) Goal Time Frame: 4-6 Weeks Goal 2:: Be able to walk with more equal stance time Goal Time Frame: 4-6 Weeks Goal 3:: Increase B LE strength (at the time of the eval: LE MMT: R hip flex 13.6 and L 14.7 R knee ext 14.2 and L 12.9 R knee flex 14.2 and L 13.7 B hip abd 4/5 B) Goal Time Frame: 4-6 Weeks Goal 4:: Be able to go up and down the steps recip without having to pull self up on the railing Goal Time Frame: 4-6 Weeks Rehabilitation Potential Rehabilitation Potential: Good Anticipated Interventions Patient/Client Instruction: Educate patient on: Condition and Plan of Care For the Purpose of:: To decrease pain, To decrease swelling/inflammation, To increase ROM, To improve nutrient delivery to tissue, To improve muscle performance and motor function, To improve ability to perform ADL's, To increase tolerance to activity/condition/position, To improve performance and independence with ADL's, To decrease level of supervision to perform tasks, To improve ability of physical actions for home/community/work/leisure, To improve gait and locomotor functions, To improve health of tissue, To decrease soft tissue restriction and To increase flexibility/ROM Therapeutic Exercise to Include: Strength training, Endurance training, Postural training, Gait and locomotor training, Neuromotor development, Active ROM and Dynamic Lumbar Stabilization For the Purpose of:: To decrease pain, To decrease swelling/inflammation, To increase ROM, To improve nutrient delivery to tissue, To increase oxygenation perfusion, To improve muscle performance and motor function, To improve ability to perform ADL's, To increase tolerance to activity/condition/position, To improve performance and independence with ADL's, To decrease level of supervision to perform tasks, To improve ability of physical actions for home/community/work/leisure, To improve gait and locomotor functions and To improve health of tissue Functional Training to Include: Gait training For the Purpose of:: To improve gait and locomotor functions Text: Thank you for the opportunity to evaluate your patient. For Medicare and Medicare HMO plans, please review the plan of care and approve it. It will need to be FAXED BACK to us at [phone] for Medicare purposes. For Medicare only, by signing this I certify the plan of care. Please let me know if there are questions or concerns regarding this plan of care. Physician Signature: Dat e:
--- NOTE | 2025-03-23 08:26 | HP.PTDCSUM ---
Discharge Summary D/C summary: It has been my pleasure to treat TIGIST UNDERWOOD referred by Cielo Garner NP-C, with the diagnosis of L knee pain/OA for a total of 6 visit(s). Discharge Date: 03/23/25 Please see the following information for a summary of their discharge status. Subjective Subjective: Pt feels that she is stronger and not sure she will ever be pain free. Pt having some lower mid back pain Pain R knee pain: Pain Intensity (Out of 10): 0 L knee pain: Pain Intensity (Out of 10): 0 Overall Improvement % Improvement: 60 Objective Objective/Function: LE MMT: R hip flex 13.6 and L 14.7 R knee ext 16.1 and L 19.7 R knee flex 14.2 and L 13.7 B hip abd 4/5 B) Up and down steps recip with no hand rail to push self up Gait: walking with good stride length and equal stance time. Pt has copy of HEP and gym routine and has full understanding of it. Goals Goal 1:: I HEP (Home Program and Gym routine) Goal Progress: Goal Met Goal 2:: Be able to walk with more equal stance time Goal Progress: Goal Met Goal 3:: Increase B LE strength (at the time of the eval: LE MMT: R hip flex 13.6 and L 14.7 R knee ext 14.2 and L 12.9 R knee flex 14.2 and L 13.7 B hip abd 4/5 B) Goal Progress: Progressing Goal 4:: Be able to go up and down the steps recip without having to pull self up on the railing Goal Progress: Goal Met Plan Plan: DC PT to Indep HEP and gym routine D/C Information Discharge Comments: DC PT to indep HEP and gym routine d/c sentence: If there are questions or concerns regarding this patient's physical therapy, please feel free to call me at [phone]. Thank you for the referral of this patient. Sincerely, Glory Almaguer, MPT Balance/Gait/Functional tests Balance/Special Test Scores Lower Extremity Functional Score: 72 Improvement % Improvement: 60
== END 2025-03-23 09:53 | disposition home or self-care (01) ==
LOC: PT 08:00
PROVIDERS: PCP Family Medicine; Referring Provider Nurse Practitioner Family; Visit Provider Nurse Practitioner Family
DX: M25.562 Pain in left knee (principal); M17.12 Unilateral primary osteoarthritis, left knee
CPT/HCPCS: 97110; 97161; 97530